=== PATIENT | female | born 1985 | race Two or more races ===

== ENCOUNTER 2024-06-30 12:47 | Emergency (ER) | payer MEDICAID ==
[~2024-06-30] VITALS: Ht 170.2 cm; Wt 63.0 kg
[2024-06-30 12:50] VITALS: O2SAT 98
[2024-06-30 14:23] LABS: BASOPHILS % 0.7 % (0.0-2.0); CHLORIDE 107 mEq/L (98-107); DIFFERENTIAL COMMENT 0; EOSINOPHILS % 1.1 % (0.0-5.0); HEMATOCRIT. 30.8 % (36.0-48.0); HEMOGLOBIN. 9.9 g/dL (12.0-16.0); LYMPHOCYTES % 24.9 % (20.0-50.0); MEAN CORPUSCULAR HEMOGLOBIN 24.4 pg (28.0-32.0); MEAN CORPUSCULAR HGB CONC 32.2 g/dL (31.0-37.0); MEAN CORPUSCULAR VOLUME 75.8 fL (81.0-99.0); MEAN PLATELET VOLUME 9.4 fl (7.4-10.4); MONOCYTES % 7.2 % (2.0-8.0); NEUTROPHILS % 66.1 % (40.0-76.0); PLATELET 276 x1000/uL (130-400); POTASSIUM 3.1 mEq/L (3.5-5.1); RED BLOOD CELL COUNT 4.07 mill/uL (4.2-5.4); RED CELL DISTRIBUTION WIDTH 19.1 % (11.6-14.6); SODIUM 141 mEq/L (136-145); WHITE BLOOD COUNT 7.5 x1000/uL (4.5-11.0)
[2024-06-30 14:24] LABS: CALCIUM 9.1 mg/dL (8.7-10.4); CARBON DIOXIDE 22 mEq/L (21-32)
[2024-06-30 14:29] LABS: CREATININE 0.7 mg/dL (0.6-1.0); GLUCOSE 110 mg/dL (70-105)
[2024-06-30 14:42] LABS: HCG SCREEN NEGATIVE
[2024-06-30 14:54] LABS: UREA NITROGEN BLOOD < 5 mg/dL (9-23)
[2024-06-30] MEDS: POTASSIUM CHLORIDE 20MEQ/PACKET PO ONE (15:14)
[2024-06-30 15:15] VITALS: BP 107/72; PULSE 83; RESP 18; TEMP 36.78072; O2SAT 98
== END 2024-06-30 15:16 | disposition home or self-care (01) ==
LOC: ER 12:47
DX: D64.9 Anemia, unspecified (principal); E87.6 Hypokalemia; F90.9 Attention-deficit hyperactivity disorder, unspecified type
CPT/HCPCS: 36415; 71045; 80048; 84703; 85025; 99284